=== PATIENT | female | born 1940 | race Asian ===

== ENCOUNTER 2017-11-10 01:35 | Inpatient (IN) | payer OTHER, MEDICARE ==
[2017-11-10] VITALS (7 sets, daily range): BP systolic 91–158; BP diastolic 48–82; Ht 157.5 cm; Wt 59.6 kg
[~2017-11-10] VITALS: Ht 157.5 cm; Wt 59.6 kg
[2017-11-10 04:30] LABS: microscopic required? NO
[2017-11-10 04:31] LABS: BASOPHIL % 0.5 % (0-2); PLATELET COUNT 372 x10^3mcL (130-400)
[2017-11-10 04:36] LABS: UA SPECIFIC GRAVITY <=1.005 (1.005-1.035); urine erythrocyte NEGATIVE (NEGATIVE)
[2017-11-10 04:36] LABS: RED CELL DISTRIBUTION WIDTH 15.9 % (11.5-14.5)
[2017-11-10 04:50] LABS: rbc morphology (normal/abnorm) ABNORMAL (NORMAL); tear drop cell (dacryocyte) 1+
[2017-11-10 04:52] LABS: CARBON DIOXIDE 22.9 mmol/L (21-32); CHLORIDE SERUM 107 mmol/L (98-107); CREATININE SERUM 0.8 mg/dL (0.6-1.0); GLUCOSE SERUM 118 mg/dL (74-106); POTASSIUM SERUM 4.1 mmol/L (3.5-5.1); SODIUM SERUM 136 mmol/L (136-145)
[2017-11-10 04:56] LABS: ALKALINE PHOSPHATASE 72 U/L (46-116); ALT/SGPT 20 U/L (14-59); AMYLASE 55 U/L (25-115); AST/SGOT 16 U/L (15-37); LIPASE 186 IU/L (73-393); TOTAL PROTEIN, SERUM 6.7 g/dL (6.4-8.2)
[2017-11-10 04:59] LABS: ALBUMIN 2.7 g/dL (3.4-5.0)
[2017-11-10] MEDS ORDERED: SIMVASTATIN10 M1 PO (05:49)
[2017-11-10] MEDS ORDERED: LOSARTAN POTASS25 M1 PO (05:49)
[2017-11-10] MEDS ORDERED: ALLOPURINOL100 MG PO (05:49)
[2017-11-10 06:35] LABS: MAGNESIUM 2.1 mg/dL (1.8-2.4); PHOSPHOROUS 3.2 mg/dL (2.5-4.9)
[2017-11-10 06:37] LABS: CHOLESTEROL/HDL RATIO 3.3
[2017-11-10 06:42] LABS: T3 TOTAL 0.75 ng/mL
[2017-11-10 08:18] LABS: T4(THYROXINE) 5.3 ug/dL (4.7-13.3)
[2017-11-10 08:34] LABS: FREE T4 1.08 ng/dL (0.76-1.46)
[2017-11-10 11:03] LABS: IRON 14 ug/dL (50-170); RED BLOOD CELLS 1.98 M/mm3 (4.10-5.10); TOTAL IRON BINDING CAPACITY 153 ug/dL (250-450)
[2017-11-10 14:54] LABS: BASOPHIL % 0.6 % (0-2); PLATELET COUNT 395 x10^3mcL (130-400)
[2017-11-10 15:01] LABS: RED CELL DISTRIBUTION WIDTH 15.6 % (11.5-14.5)
[2017-11-11 05:02] VITALS: BP 101/63
[2017-11-11 06:26] LABS: BASOPHIL % 0.4 % (0-2); PLATELET COUNT 370 x10^3mcL (130-400)
[2017-11-11 06:34] LABS: RED CELL DISTRIBUTION WIDTH 15.9 % (11.5-14.5)
[2017-11-11 06:36] LABS: CALCIUM 7.1 mg/dL (8.5-10.1); CARBON DIOXIDE 25.4 mmol/L (21-32); CHLORIDE SERUM 111 mmol/L (98-107); CREATININE SERUM 0.7 mg/dL (0.6-1.0); GLUCOSE SERUM 96 mg/dL (74-106); MAGNESIUM 2.4 mg/dL (1.8-2.4); PHOSPHOROUS 2.9 mg/dL (2.5-4.9); POTASSIUM SERUM 3.8 mmol/L (3.5-5.1); SODIUM SERUM 141 mmol/L (136-145)
[2017-11-11 08:53] VITALS: BP 97/50
[2017-11-11 13:30] VITALS: BP 112/62
[2017-11-11 18:48] VITALS: BP 111/57
[2017-11-11 20:35] VITALS: BP 117/62
[2017-11-12 05:55] VITALS: BP 119/69
[2017-11-12 06:34] LABS: BASOPHIL % 0.4 % (0-2); PLATELET COUNT 361 x10^3mcL (130-400)
[2017-11-12 06:44] LABS: CALCIUM 7.2 mg/dL (8.5-10.1); CHLORIDE SERUM 110 mmol/L (98-107); CREATININE SERUM 0.7 mg/dL (0.6-1.0); GLUCOSE SERUM 92 mg/dL (74-106); POTASSIUM SERUM 3.7 mmol/L (3.5-5.1); RED CELL DISTRIBUTION WIDTH 15.8 % (11.5-14.5); SODIUM SERUM 142 mmol/L (136-145)
[2017-11-12 08:18] VITALS: BP 112/59
[2017-11-12] MEDS ORDERED: AMO500 PO (10:19)
[2017-11-12] MEDS ORDERED: BIA500 PO (10:19)
[2017-11-12] MEDS ORDERED: FER300 PO (10:20)
[2017-11-12] MEDS ORDERED: VITC PO (10:21)
[2017-11-12] MEDS ORDERED: PRI20 PO (10:21)
[2017-11-12] MEDS ORDERED: BD LACTINEX1.4 MG PO (10:23)
[2017-11-12 11:29] VITALS: BP 112/59
[2017-11-12 12:48] VITALS: BP 130/73
[2017-11-12] MEDS ORDERED: LIDOCAINE HCL100 ML PO (14:02)
== END 2017-11-12 16:45 | disposition home or self-care (01) | DRG 241 ==
LOC: ED 01:35 → DU 05:37
PROVIDERS: Emergency Medicine; Family Medicine; Internal Medicine
PROC: 30233N1 Transfusion of Nonautologous Red Blood Cells into Peripheral Vein, Percutaneous Approach (ICD-10-PCS; 2017-11-10)
PROC: 0DB68ZX Excision of Stomach, Via Natural or Artificial Opening Endoscopic, Diagnostic (ICD-10-PCS; principal; 2017-11-11 12:00)
DX: K27.4 Chronic or unspecified peptic ulcer, site unspecified, with hemorrhage (principal); E43 Unspecified severe protein-calorie malnutrition; D64.9 Anemia, unspecified; E87.8 Other disorders of electrolyte and fluid balance, not elsewhere classified; K20.9 Esophagitis, unspecified; I10 Essential (primary) hypertension; E78.5 Hyperlipidemia, unspecified; E83.51 Hypocalcemia; R73.03 Prediabetes; B96.81 Helicobacter pylori [H. pylori] as the cause of diseases classified elsewhere; D50.9 Iron deficiency anemia, unspecified; M10.9 Gout, unspecified; E78.00 Pure hypercholesterolemia, unspecified; K59.00 Constipation, unspecified; Z68.27 Body mass index [BMI] 27.0-27.9, adult
CPT/HCPCS: 43235; 83880; 84439; 97535-GP; C9113; J1200; J1610; J2250; J2270; J2310; J2405; J3010; J3490; J7030; J7040; P9016; Q0163

== ENCOUNTER 2018-04-19 19:39 | Inpatient (IN) | payer OTHER, MEDICARE ==
[~2018-04-19] VITALS: Ht 152.4 cm; Wt 55.0 kg
[~2018-04-19 19:39] MED LIST: ALLOPURINOL100 MG PO; AMO500 PO; BD LACTINEX1.4 MG PO; BIA500 PO; FER300 PO; LIDOCAINE HCL100 ML PO; LOSARTAN POTASS25 M1 PO; PRI20 PO; SIMVASTATIN10 M1 PO; VITC PO
[2018-04-19 21:00] LABS: BASOPHIL % 0.2 % (0-2); PLATELET COUNT 361 x10^3mcL (130-400)
[2018-04-19 21:01] LABS: RED CELL DISTRIBUTION WIDTH 16.3 % (11.5-14.5)
[2018-04-19 21:14] LABS: CALCIUM 7.7 mg/dL (8.5-10.1); CARBON DIOXIDE 21.3 mmol/L (21-32); CHLORIDE SERUM 99 mmol/L (98-107); CREATININE SERUM 0.9 mg/dL (0.6-1.0); GLUCOSE SERUM 92 mg/dL (74-106); POTASSIUM SERUM 3.8 mmol/L (3.5-5.1); SODIUM SERUM 129 mmol/L (136-145)
[2018-04-19 21:18] LABS: ALKALINE PHOSPHATASE 318 U/L (46-116); ALT/SGPT 25 U/L (14-59); AST/SGOT 62 U/L (15-37); BILIRUBIN TOTAL 0.4 mg/dL (0.20-1.00)
[2018-04-19 21:20] LABS: ALBUMIN 2.4 g/dL (3.4-5.0); AMYLASE 175 U/L (25-115)
[2018-04-19 21:21] LABS: LIPASE 1860 IU/L (73-393)
[2018-04-19] MEDS ORDERED: SIMVASTATIN20 M1 PO (22:52)
[2018-04-20 00:21] LABS: MAGNESIUM 2.4 mg/dL (1.8-2.4); PHOSPHOROUS 3.9 mg/dL (2.5-4.9)
[2018-04-20 00:22] LABS: CHOLESTEROL/HDL RATIO 2.7
[2018-04-20 00:24] LABS: T3 TOTAL 0.78 ng/mL
[2018-04-20 00:30] VITALS: BP 111/56
[2018-04-20 01:07] LABS: FREE T4 1.4 ng/dL (0.76-1.46); FREE THYROXINE INDEX 2.8 ug/dL (1.4-4.5); T4(THYROXINE) 7.6 ug/dL (4.7-13.3)
[2018-04-20 02:12] VITALS: Ht 152.4 cm; Wt 55.0 kg
[2018-04-20 05:01] VITALS: BP 109/61
[2018-04-20 06:30] LABS: BASOPHIL % 0.1 % (0-2); PLATELET COUNT 303 x10^3mcL (130-400)
[2018-04-20 06:46] LABS: CALCIUM 7.9 mg/dL (8.5-10.1); CARBON DIOXIDE 22.5 mmol/L (21-32); CHLORIDE SERUM 105 mmol/L (98-107); CREATININE SERUM 0.7 mg/dL (0.6-1.0); GLUCOSE SERUM 100 mg/dL (74-106); LIPASE 1264 IU/L (73-393); MAGNESIUM 2.1 mg/dL (1.8-2.4); PHOSPHOROUS 4.3 mg/dL (2.5-4.9); POTASSIUM SERUM 3.7 mmol/L (3.5-5.1); SODIUM SERUM 137 mmol/L (136-145)
[2018-04-20 06:54] LABS: RED CELL DISTRIBUTION WIDTH 16.4 % (11.5-14.5)
[2018-04-20 07:17] LABS: UA SPECIFIC GRAVITY <=1.005 (1.005-1.035); microscopic required? YES; urine erythrocyte 3+ (NEGATIVE)
[2018-04-20 07:54] LABS: AMPHETAMINE QUAL UR NONE DETECTED (See below)
[2018-04-20 09:40] VITALS: BP 106/62
[2018-04-20 16:48] VITALS: BP 110/64
[2018-04-20 21:13] VITALS: BP 114/66
[2018-04-21 04:35] VITALS: BP 119/70
[2018-04-21 07:28] LABS: BASOPHIL % 0.2 % (0-2); PLATELET COUNT 340 x10^3mcL (130-400)
[2018-04-21 07:32] LABS: RED CELL DISTRIBUTION WIDTH 15.6 % (11.5-14.5)
[2018-04-21 07:39] LABS: CALCIUM 7.3 mg/dL (8.5-10.1); CARBON DIOXIDE 23.5 mmol/L (21-32); CHLORIDE SERUM 107 mmol/L (98-107); CREATININE SERUM 0.6 mg/dL (0.6-1.0); GLUCOSE SERUM 123 mg/dL (74-106); LIPASE 1126 IU/L (73-393); POTASSIUM SERUM 3.3 mmol/L (3.5-5.1); SODIUM SERUM 138 mmol/L (136-145)
[2018-04-21 08:18] VITALS: BP 118/72
[2018-04-21 16:34] VITALS: BP 121/71
[2018-04-21 21:58] VITALS: BP 133/74
[2018-04-22 05:13] VITALS: BP 150/81
[2018-04-22 06:50] LABS: PLATELET COUNT 332 x10^3mcL (130-400)
[2018-04-22 06:51] LABS: CALCIUM 7.5 mg/dL (8.5-10.1); CARBON DIOXIDE 23.5 mmol/L (21-32); CHLORIDE SERUM 104 mmol/L (98-107); CREATININE SERUM 0.6 mg/dL (0.6-1.0); GLUCOSE SERUM 109 mg/dL (74-106); POTASSIUM SERUM 3.6 mmol/L (3.5-5.1); SODIUM SERUM 137 mmol/L (136-145)
[2018-04-22 07:06] LABS: BASOPHIL % 0 % (0-2); RED CELL DISTRIBUTION WIDTH 15.9 % (11.5-14.5)
[2018-04-22 08:13] VITALS: BP 161/87
[2018-04-22 12:14] VITALS: BP 133/80
== END 2018-04-22 17:06 | disposition home or self-care (01) | DRG 282 ==
LOC: ED 19:39 → MU 23:09 → DU 23:09 → MU 04-20 00:14 → DU 04-20 00:15
PROVIDERS: Emergency Medicine; Family Medicine
DX: K85.90 Acute pancreatitis without necrosis or infection, unspecified (principal); N17.0 Acute kidney failure with tubular necrosis; E43 Unspecified severe protein-calorie malnutrition; C78.89 Secondary malignant neoplasm of other digestive organs; E86.0 Dehydration; C78.7 Secondary malignant neoplasm of liver and intrahepatic bile duct; E83.51 Hypocalcemia; K86.81 Exocrine pancreatic insufficiency; E87.1 Hypo-osmolality and hyponatremia; D72.829 Elevated white blood cell count, unspecified; E78.5 Hyperlipidemia, unspecified; M10.9 Gout, unspecified; Z68.22 Body mass index [BMI] 22.0-22.9, adult; Z98.2 Presence of cerebrospinal fluid drainage device; Z85.020 Personal history of malignant carcinoid tumor of stomach; Z86.73 Personal history of transient ischemic attack (TIA), and cerebral infarction without residual deficits
CPT/HCPCS: 83880; 84439; 92526-GN; 92610-GN; J1885; J2405; J2765; J3010; J3490; J7030; J7042; P9047; Q0092; Q0163; Q9966; Q9967

== ENCOUNTER 2018-06-03 13:15 | Inpatient (IN) | payer OTHER, MEDICARE ==
[~2018-06-03] VITALS: Ht 152.4 cm; Wt 52.0 kg
[~2018-06-03 13:15] MED LIST changes: +SIMVASTATIN20 M1 PO
[2018-06-03 13:22] VITALS: Ht 152.4 cm; Wt 52.0 kg
[2018-06-03 15:29] LABS: BASOPHIL % 0 % (0-2); RED CELL DISTRIBUTION WIDTH 21.8 % (11.5-14.5)
[2018-06-03 15:30] LABS: PLATELET COUNT 74 x10^3mcL (130-400)
[2018-06-03 15:38] LABS: ALKALINE PHOSPHATASE 740 U/L (46-116); ALT/SGPT 68 U/L (14-59); AMYLASE 62 U/L (25-115); AST/SGOT 251 U/L (15-37); BILIRUBIN TOTAL 2.4 mg/dL (0.20-1.00); CARBON DIOXIDE 23.7 mmol/L (21-32); CHLORIDE SERUM 113 mmol/L (98-107); CHOLESTEROL 137 mg/dL (<200); CREATININE SERUM 2.8 mg/dL (0.6-1.0); GLUCOSE SERUM 101 mg/dL (74-106); LIPASE 357 IU/L (73-393); SODIUM SERUM 152 mmol/L (136-145); TOTAL PROTEIN, SERUM 6.9 g/dL (6.4-8.2)
[2018-06-03 15:45] LABS: ALBUMIN 2.2 g/dL (3.4-5.0); HDL CHOLESTEROL 20 mg/dL (40-60)
[2018-06-03 17:52] LABS: UA SPECIFIC GRAVITY >=1.030 (1.005-1.035); microscopic required? YES; urine erythrocyte TRACE (NEGATIVE)
[2018-06-03 18:02] LABS: AMPHETAMINE QUAL UR NONE DETECTED (See below)
[2018-06-03 18:16] VITALS: BP 102/56
[2018-06-03 20:21] VITALS: BP 98/66
[2018-06-04] VITALS (10 sets, daily range): BP systolic 41–99; BP diastolic 19–66
[2018-06-04 07:08] LABS: CALCIUM 7.5 mg/dL (8.5-10.1); CARBON DIOXIDE 18.9 mmol/L (21-32); CHLORIDE SERUM 115 mmol/L (98-107); GLUCOSE SERUM 85 mg/dL (74-106); MAGNESIUM 3.5 mg/dL (1.8-2.4); PHOSPHOROUS 7.8 mg/dL (2.5-4.9); SODIUM SERUM 153 mmol/L (136-145)
[2018-06-04 07:16] LABS: PLATELET COUNT 60 x10^3mcL (130-400); RED CELL DISTRIBUTION WIDTH 21.9 % (11.5-14.5)
[2018-06-04 08:21] LABS: POTASSIUM SERUM 5.7 mmol/L (3.5-5.1)
[2018-06-04 09:12] LABS: ATYPICAL LYMPH 1 %; BAND NEUTROPHIL 1 % (0-10); BASOPHIL 0 % (0-2); MONOCYTE 3 % (0-7); SEGMENTED NEUTROPHILS 95 % (37-75)
[2018-06-04 09:14] LABS: PLATELET MORPHOLOGY PLATELETS DECREASED; acanthocyte (spur cell) 2+; rbc morphology (normal/abnorm) ABNORMAL (NORMAL); schistocyte (helmet cell) 2+
[2018-06-05 00:13] VITALS: BP 60/52
[2018-06-05 02:30] VITALS: BP 60/47
[2018-06-05 03:30] VITALS: BP 59/35
[2018-06-05 05:26] LABS: IRON 160 ug/dL (50-170); TOTAL IRON BINDING CAPACITY 94 ug/dL (250-450)
[2018-06-05 05:28] LABS: CALCIUM 6.4 mg/dL (8.5-10.1); CREATININE SERUM 3.5 mg/dL (0.6-1.0); MAGNESIUM 3.3 mg/dL (1.8-2.4)
[2018-06-05 05:46] LABS: RED CELL DISTRIBUTION WIDTH 22.9 % (11.5-14.5)
[2018-06-05 05:54] LABS: CARBON DIOXIDE 10.1 mmol/L (21-32); GLUCOSE SERUM 146 mg/dL (74-106); SODIUM SERUM 147 mmol/L (136-145)
[2018-06-05 05:56] LABS: CHLORIDE SERUM 108 mmol/L (98-107)
[2018-06-05 05:57] LABS: POTASSIUM SERUM 7.7 mmol/L (3.5-5.1)
[2018-06-05 06:14] LABS: PHOSPHOROUS 11.3 mg/dL (2.5-4.9)
[2018-06-05 06:18] VITALS: BP 102/40
[2018-06-05 06:23] LABS: BAND NEUTROPHIL 12 % (0-10); METAMYELOCTE 3 % (0-2); SEGMENTED NEUTROPHILS 83 % (37-75)
[2018-06-05 06:27] LABS: rbc morphology (normal/abnorm) ABNORMAL (NORMAL)
[2018-06-05 06:28] LABS: PLATELET MORPHOLOGY PLATELETS DECREASED; burr cell (echinocyte) 2+
[2018-06-05 06:32] LABS: PLATELET COUNT 15 x10^3mcL (130-400)
[2018-06-05 07:23] VITALS: BP 87/39
[2018-06-05 10:00] VITALS: BP 87/39
== END 2018-06-05 10:20 | disposition expired | DRG 720 ==
LOC: ED 13:15 → IC 16:49 → DU 16:49 → IC 06-04 12:49
PROVIDERS: Emergency Medicine; Internal Medicine; Internal Medicine Nephrology
PROC: 5A1935Z Respiratory Ventilation, Less than 24 Consecutive Hours (ICD-10-PCS; principal; 2018-06-04)
PROC: 02HV33Z Insertion of Infusion Device into Superior Vena Cava, Percutaneous Approach (ICD-10-PCS; 2018-06-04)
PROC: B548ZZA Ultrasonography of Superior Vena Cava, Guidance (ICD-10-PCS; 2018-06-04)
PROC: 0BH17EZ Insertion of Endotracheal Airway into Trachea, Via Natural or Artificial Opening (ICD-10-PCS; 2018-06-04)
DX: A41.9 Sepsis, unspecified organism (principal); N17.0 Acute kidney failure with tubular necrosis; J96.01 Acute respiratory failure with hypoxia; E43 Unspecified severe protein-calorie malnutrition; L89.153 Pressure ulcer of sacral region, stage 3; C78.02 Secondary malignant neoplasm of left lung; E87.0 Hyperosmolality and hypernatremia; D69.6 Thrombocytopenia, unspecified; E83.39 Other disorders of phosphorus metabolism; C16.9 Malignant neoplasm of stomach, unspecified; E83.41 Hypermagnesemia; D63.0 Anemia in neoplastic disease; Z51.5 Encounter for palliative care; E78.5 Hyperlipidemia, unspecified; M10.9 Gout, unspecified; R64 Cachexia; E83.51 Hypocalcemia; N18.9 Chronic kidney disease, unspecified; I12.9 Hypertensive chronic kidney disease with stage 1 through stage 4 chronic kidney disease, or unspecified chronic kidney disease; E78.00 Pure hypercholesterolemia, unspecified; Z66 Do not resuscitate; Z68.1 Body mass index [BMI] 19.9 or less, adult; Z98.2 Presence of cerebrospinal fluid drainage device; Z86.73 Personal history of transient ischemic attack (TIA), and cerebral infarction without residual deficits; Z98.84 Bariatric surgery status
CPT/HCPCS: 36600; 82962; 83880; A4628; C9113; J1642; J1720; J2270; J2370; J2543; J3411; J3475; J3490; J7030; J7040; J7620; Q0092